=== PATIENT | female | born 2000 | race Caucasian/White ===

== ENCOUNTER 2024-11-28 22:54 | Emergency (ER) | payer OTHER, SELFPAY ==
[2024-11-28 22:58] VITALS: BP 164/114
[2024-11-29 00:32] VITALS: BMI 29.3
[2024-11-29] MEDS: TORADOL 30 MG IV (00:39)
[2024-11-29 00:44] VITALS: BP 136/99
[2024-11-29 00:55] LABS: % Basophils 0.4 % (0-2); % Eosinophils 1.9 % (0-6); % Immature Granulocytes 0.6 % (0-0.5); % Lymphocytes 26.7 % (20.5-51.1); % Monocytes 11.2 % (1.7-9.3); % Neutrophils 59.2 % (42.2-75.2); Absolute Basophils 0.1 10^3/uL (0-0.2); Absolute Eosinophils 0.2 10^3/uL (0-0.7); Absolute Immature Granulocytes 0.1 10^3/uL (0-0.05); Absolute Lymphocytes 3.5 10^3/uL (1.2-3.4); Absolute Monocytes 1.5 10^3/uL (0.1-0.6); Absolute Neutrophils 7.7 10^3/uL (1.4-6.5); Hematocrit 39.4 % (37.0-47.0); Hemoglobin 13.8 g/dL (12.0-16.0); Mean Corpuscular Hgb 29.9 pg (27.0-31.0); Mean Corpuscular Volume 85.3 fL (81.0-99.0); Mean Platelet Volume 8.7 fL (7.4-10.4); Nucleated Red Blood Cells % 0 %; Platelet Count 373 10^3/uL (130-400); Red Blood Cell Count 4.62 10^6/uL (4.20-5.40); Red Cell Dist. Width 12.4 % (11.5-14.5); White Blood Cell Count 12.9 10^3/uL (4.8-10.8)
[2024-11-29 01:07] LABS: ALT (SGPT) 14 U/L (0-35); AST (SGOT) 19 U/L (14-36); Albumin 4.4 g/dl (3.5-5.0); Alkaline Phosphatase 82 U/L (38-126); Blood Urea Nitrogen 10 mg/dl (7-17); Calcium 9.5 mg/dl (8.4-10.2); Carbon Dioxide 25 mmol/L (22-30); Chloride 110 mmol/L (98-107); Estimated Creatinine Clearance > 125 ml/min; Glucose 107 mg/dl (70-99); Potassium 3.9 mmol/L (3.5-5.1); Sodium 141 mmol/L (135-145); Total Bilirubin 0.4 mg/dl (0.2-1.3); Total Protein 7.5 g/dl (6.3-8.2); eGFR > 60.00
--- NOTE | 2024-11-29 01:58 | ED.GENMED ---
History of Present Illness
General
Chief Complaint: Ear Problem
Source: patient
Exam Limitations: none
Time Seen by Provider: 11/29/24 00:00
Nursing documentation reviewed up to this point in time: agreed with
History of Present Illness
History of Present Illness:
The patient is a 24-year-old female who reports 4 days of right ear pain. Patient reports that 3 days ago she was evaluated by an ENT doctor and started on Cipro Dex eardrops. Patient reports that her symptoms intensified and she felt as though
her right ear was closing up. She notified the ENT doctor and was prescribed oral Cipro. Patient reports she has taken 1 dose of the oral Cipro. The patient reports that the pain in her right ear is unbearable and throbbing. The pain radiates
towards the front and back of her right ear and she reports swelling around the area. She denies fevers and chills. Patient is crying due to severe pain.
Past History
Past History
ED Past Medical History: Psychiatric (Anxiety)
ED Past Surgical History: Tonsilectomy
Social History
Tobacco: Other
Alcohol: Other
Drug: None
Personal: Other
Living: other
Employment: Other
Family History
Family History: Other
Review of Systems
Review of Systems
Allergies reviewed?: Yes
All Other Systems: ROS reviewed and negative except as documented in HPI and ROS
Constitutional: Reports no symptoms
EENT: Reports other
Respiratory: Reports no symptoms
Cardiac: Reports no symptoms
ABD/GI: Reports no symptoms
: Reports no symptoms
Musculoskeletal: Reports no symptoms
Skin: Reports no symptoms
Neurological: Reports no symptoms
Endocrine: Reports no symptoms
Hematologic/Lymphatic: Reports no symptoms
Psychiatric: Reports no symptoms
Phy Exam
Physical Exam
Physical Exam:
Physical Exam
General: Patient is crying and holding her right ear
Neck: supple. no meningeal signs. normal psoterior pharynx. Right auditory canal is swollen nearly shut and edematous. Patient has significant tenderness and swelling just anterior to her right ear. Mild tenderness
just posterior to right ear. No mastoid tenderness or swelling. Soft tissue tenderness right TMJ area
Heart: s1/s2 regular rate and rhythm, no murmur. equal radial pulses.
Lungs: no acute respiratory distress. clear bilaterally
Abdomen: Soft, nontender
Neuro: alert and oriented. no focal neurological deficits
Skin: no rash
Psychiatric: well kept. interactive and cooperative
Extremities: no edema.
Course
Orders/Labs/Results
Orders:
Orders
11/29/24 00:20
Ketorolac [Toradol] 30 mg IV NOW STA
11/29/24 00:21
CT Facial Bones W/ Iv Contrast Urgent
Comment:
Reason For Exam: severe R ear pain, ear infection
11/29/24 00:33
Complete Blood Count/With Diff Urgent
Comprehensive Metabolic Panel Urgent
Abnormal Lab Results
11/29/24
00:33
WBC 12.9 H 10^3/uL
(4.8-10.8)
Abs Immat Gran (auto) 0.1 H 10^3/uL
(0-0.05)
Absolute Neuts (auto) 7.7 H 10^3/uL
(1.4-6.5)
Absolute Lymphs (auto) 3.5 H 10^3/uL
(1.2-3.4)
Absolute Monos (auto) 1.5 H 10^3/uL
(0.1-0.6)
Immature Gran % 0.6 H %
(0-0.5)
Monocytes % 11.2 H %
(1.7-9.3)
Chloride 110 H mmol/L
(98-107)
Glucose 107 H mg/dl
(70-99)
11/29/24 00:33
11/29/24 00:33
Vital Signs
Initial and Last Documented VS:
Initial Vital Signs
Temp Pulse Resp BP Pulse Ox
98.2 F 86 20 164/114 98
11/28/24 22:58 11/28/24 22:58 11/28/24 22:58 11/28/24 22:58 11/28/24 22:58
Last Documented Vital Signs
Temp Pulse Resp BP Pulse Ox
98.2 F 73 18 126/76 97
11/28/24 22:58 11/29/24 02:39 11/29/24 02:39 11/29/24 02:39 11/29/24 02:39
MDM/Problems Addressed
Differential Diagnosis Includes:
Acute right otitis externa, mastoiditis,
MDM/Problems Addressed:
Patient presents with severe acute right ear pain
Acute Exacerbation and/or Progression of Chronic Illness:
Patient is hypertensive likely due to severe pain
Acute Exacerbation and/or Progression of Chronic Illness: HTN
*Radiology
Radiology exam reviewed: radiology read reviewed
*Pulse Oximetry
Patient hypoxic: no
Comment: 98% on room air
*EKG
Interpreted by ED Provider?: NA
*Ciaio Counter Molder Interpretation
Rate: Ciaio Counter Molder- N/A
*Critical Care Note
Total Time (30-74mins, 75-104mins- exclusive of procedures): Not Applicable
Data Reviewed
Source: patient
Patient Management
Social determinants of health affecting care: Living situation and Strong social support
Discussion with other providers: Other (Case and CAT scan report discussed with Dr. Zane sprague who felt that if patient and I felt comfortable, that she was able to go home with continued use of Ciprodex drops and Cipro. Also recommended that I
place a wick in right auditory canal)
Escalation/DeEscalation of care consider admission/obs:
Patient appears nontoxic. There is no sign of definite mastoiditis on CAT scan. Patient's pain much better with Toradol. I was able to place a right auditory canal ear wick which patient was instructed to have removed in about 4 days if it does
not fall outon its own
ED Attending Note
-
Portions of this chart may have been created with voice recognition software.� Occasional wrong word or��sound alike� substitutions may have occurred due to the inherent limitations of voice recognition software.
Discharge Plan
Departure
Patient Disposition: Home (Routine Discharge)
Date of Disposition: 11/29/24
Time of Disposition: 03:12
Patient with high blood pressure during this ER visit?: Yes
Condition: Good
Covid-19: Not Applicable
Discharge Problem:
Acute Otitis Externa
Instructions: Outer Ear Infection (DC), BLOOD PRESSURE
Prescriptions:
New
ketorolac 10 mg tablet
10 mg PO TID PRN (Reason: Pain) Qty: 10 0RF
Rx Instructions:
maximum total duration of 5 days from all oral, intranasal, or parenteral formulations
No Action
ciprofloxacin HCl 500 mg Tablet
500 mg PO BID
mometasone 0.1 % Cream
1 applic TOPICAL DAILY
Rx Instructions:
to itchy ears
ciprofloxacin-dexamethasone 0.3-0.1 % Drops,Suspension
4 drp OTIC (EAR) BID
Referrals:
Nelia Breen MD [Family Provider, Internal Medicine]
Activity Restrictions/Additional Instructions:
Please continue both your prescription for the Cipro-dexamethasone eardrops as well as the oral Cipro tablets.
Please take Toradol every 8 hours as needed for pain. Please do not combine the Toradol with any other NSAIDs such as Motrin, ibuprofen, Aleve, or Advil.
The wick inside of your right ear will need to be removed in 4-5 days. It is absolutely fine if the wick falls out on its own
Interventions
Interventions:
*Risk Screen - Suicide Last Done: 11/28/24 22:58
*General Assessment Last Done: 11/29/24 00:32
*Neglect/Abuse Screening Last Done: 11/28/24 22:58
*ED- Fall Risk Assessment Last Done: 11/28/24 22:58
*ED COVID-19 Vaccine History Last Done: 11/28/24 22:58
Discharge Date and Time
Print Language: [id number]
[2024-11-29 02:39] VITALS: BP 126/76
== END 2024-11-29 03:28 | disposition home or self-care (01) ==
LOC: EMR 22:54
PROVIDERS: EMERGENCY PHYSICIAN Emergency Medicine; FAMILY PHYSICIAN Internal Medicine
DX: H60.391 Other infective otitis externa, right ear (principal); F41.9 Anxiety disorder, unspecified; I10 Essential (primary) hypertension
CPT/HCPCS: 99284; 96374; 70487; 80053; 85025; Q9967